=== PATIENT | female | born 1975 | race African-American/Black ===

== ENCOUNTER 2019-06-27 20:15 | Emergency (ER) | payer MEDICARE, OTHER ==
[~2019-06-27] VITALS: Ht 167.6 cm; Wt 108.9 kg
[~2019-06-27 20:15] MED LIST: ACETAMINOPHEN-1 EAC1 ORAL; ALBUTEROL SULF8.5 GM INH; Dexamethasone 4mg/ml vial IVP ONE; TAMIFLU75 MG ORAL; VENTOLIN HFA18 GM INH
[2019-06-27] MEDS: Ipratropium 0.02% Inh Soln 2.5ml UD HHN SCH ×3 (20:38→21:08)
[2019-06-27] MEDS: Albuterol ud Inhalation HHN SCH ×3 (20:38→21:08)
[2019-06-27] MEDS ORDERED: Solu-MEDROL 125mg Inj ONE (21:04)
--- NOTE | 2019-06-27 21:08 | Emergency Room Report ---
History of Present Illness General Chief Complaint: Asthma Source: Patient Present Illness HPI 43-year-old female history of asthma presents with acute shortness of breath prior to arrival, patient was surrounded by people smoking at her home she lives with her mom, she had shortness of breath never been intubated never been placed in ICU alleviated by taking her albuterol severity is moderate, constant patient received duo nebs in the ambulance, patient denies any chest pain, she does endorse tightness trying to get a deep breath in however with EMS albuterol treatments she feels a lot better. Allergies: Coded Allergies: No Known Allergies (Unverified , 09/15/16) Patient History Past Medical History: see triage record Now: No Reviewed Nursing Documentation: PMH: Agreed; PSxH: Agreed Nursing Documentation-PMH Hx Cardiac Problems: No Hx Hypertension: Yes Hx Pacemaker: No Hx Asthma: Yes Hx COPD: No Hx Diabetes: No Hx Cancer: No Hx Gastrointestinal Problems: No Hx Dialysis: No Hx Neurological Problems: No Hx Cerebrovascular Accident: No Hx Seizures: No Review of Systems All Other Systems: negative except mentioned in HPI Physical Exam Vital Signs Date Time Temp Pulse Resp B/P (MAP) Pulse Ox O2 Delivery O2 Flow Rate FiO2 06/27/19 20:10 98.2 108 18 156/9 (58) 98 Room Air 06/27/19 20:35 21 Sp02 EP Interpretation: reviewed, normal General Appearance: well appearing, no apparent distress, alert Head: normocephalic, atraumatic Eyes: bilateral eye PERRL, bilateral eye EOMI ENT: uvula midline, moist mucus membranes Neck: supple, thyroid normal, supple/symm/no masses Respiratory: no respiratory distress, no retraction, no accessory muscle use, wheezing - mild Cardiovascular #1: normal peripheral pulses, no edema, no gallop, no murmur, tachycardia Gastrointestinal: non tender, soft, no guarding, no rebound Musculoskeletal: normal inspection Neurologic: alert, oriented x3 Psychiatric: mood/affect normal Skin: no rash, warm/dry Medical Decision Making Diagnostic Impression: Primary Impression: Asthma attack Qualified Codes: J45.31 - Mild persistent asthma with (acute) exacerbation ER Course 43-year-old female presents with shortness of breath consistent with asthma, no chest pain, Differential includes pneumonia, pneumothorax, asthma attack Patient with mild wheezing that has improved with albuterol treatments steroids given fluids given Counseled patient's relatives not to smoke around her or in the house, counseled him to also stop smoking. Will provide patient with a steroid burst disposition home with return precautions EKG Diagnostic Results EKG Time: 20:22 EP Interpretation: Sinus tachycardia, rate 117, QTc 454, no acute ST elevations , normal axis Chest X-Ray Diagnostic Results Chest X-Ray Diagnostic Results : Chest X-Ray Ordered: Yes # of Views/Limited/Complete: 1 View Indication: Shortness of Breath EP Interpretation: Yes Interpretation: no consolidation, no effusion, no pneumothorax, no acute cardiopulmonary disease Impression: No acute disease Electronically Signed by: Michael Jennings MD Last Vital Signs Date Time Temp Pulse Resp B/P (MAP) Pulse Ox O2 Delivery O2 Flow Rate FiO2 06/27/19 20:52 121 20 98 Room Air 21 06/27/19 20:10 98.2 156/9 (58) Disposition: HOME, SELF-CARE Condition: Stable Scripts Albuterol Sulfate* (ALBUTEROL SULFATE MDI*) 8.5 Gm Hfa.aer.ad 2 PUFF INH Q4H PRN for Shortness of Breath, #1 EA 0 Refills Prov: Michael Jennings MD 06/27/19 Prednisone* (PREDNISONE*) 50 Mg Tablet 50 MG ORAL DAILY, #4 TAB 0 Refills Prov: Michael Jennings MD 06/27/19 Referrals: [facility] Patient Instructions: Asthma, Adult Additional Instructions: The patient was provided with discharge instructions, notified to follow-up with a primary care doctor and or specialist in the next 24-48 hours, and to return to the ED if they have worsening of their symptoms. Please note that this report is being documented using [employer] technology. This can lead to erroneous entry secondary to incorrect interpretation by the dictating instrument. Michael Jennings MD Jun 27, 2019 21:08
[2019-06-27] MEDS ORDERED: PREDNISONE50 MG ORAL (21:10)
[2019-06-27] MEDS ORDERED: ALBUTEROL SULF8.5 GM INH (21:10)
[2019-06-27] MEDS ORDERED: Solu-MEDROL 125mg Inj IVP ONE (21:15)
[2019-06-27 22:00] VITALS: BP 150/91
[2019-06-27 22:30] VITALS: BP 156/9
--- NOTE | 2019-06-28 11:35 | Diagnostic Imaging Report ---
Indication: Cough Comparison: 09/15/2016 A single view chest radiograph was obtained. Findings: Cardiomediastinal appearance is within normal limits for age. The lungs are clear. Pulmonary vascularity is appropriate. The diaphragmatic contour is smooth and costophrenic angles are sharp. No pleural effusions are identified. The bones are unremarkable. Impression: No acute findings
--- NOTE | 2019-06-29 17:33 | Cardiology Report ---
APPROVED REPORT EKG Measurement Heart [id number] Sinus tachycardia Nonspecific T wave abnormality Abnormal ECG
== END 2019-06-27 22:30 | disposition home or self-care (01) ==
LOC: EDBD 20:15 → EMR 20:30
DX: J45.31 Mild persistent asthma with (acute) exacerbation (principal); I10 Essential (primary) hypertension; Z77.22 Contact with and (suspected) exposure to environmental tobacco smoke (acute) (chronic)
CPT/HCPCS: 71045; 93005; 94640; 94664; 96361; 96374; 99284; J2930; J7030